=== PATIENT | male | born 1955 | race Two or more races ===

== ENCOUNTER 2022-06-30 20:01 | Emergency (ER) | payer OTHER ==
[~2022-06-30] VITALS: Ht 175.3 cm; Wt 97.1 kg
[2022-06-30] MEDS ORDERED: OMEPRAZOLE40 MG PO (20:43)
[2022-06-30] MEDS ORDERED: LISINOPRIL40 MG PO (20:44)
[2022-06-30] MEDS ORDERED: FARXIGA5 MG PO (20:45)
== END 2022-06-30 21:46 | disposition home or self-care (01) ==
LOC: ER 20:01
DX: R33.8 Other retention of urine (principal); Z91.018 Allergy to other foods